=== PATIENT | male | born 1955 | race Two or more races ===

== ENCOUNTER 2017-10-18 02:34 | Emergency (ER) | payer OTHER ==
[~2017-10-18] VITALS: Ht 170.2 cm; Wt 113.4 kg
[2017-10-18 03:20] VITALS: BP 160/96
[2017-10-18] MEDS ORDERED: cefTRIAXone SOD 1,000 MG VL IM ONE (04:45)
== END 2017-10-18 06:20 | disposition home or self-care (01) ==
LOC: ER 02:47
DX: S01.81XA Laceration without foreign body of other part of head, initial encounter (principal); W06.XXXA Fall from bed, initial encounter; Y93.89 Activity, other specified; Y99.8 Other external cause status; Y92.89 Other specified places as the place of occurrence of the external cause
CPT/HCPCS: 12013; 70450; 96372; 99284; J0696